=== PATIENT | male | born 1950 | race Caucasian/White ===

== ENCOUNTER → 2017-08-11 | Emergency (ER) | payer BC ==
[~2017-08-11] MED LIST: Triamcinolone Acetonide* 40 MG/ML 1 ML VIAL INTRAARTIC ONE
[2017-08-11 11:20] VITALS: BP 138/89
--- NOTE | 2017-08-11 13:52 | ED ---
Lower Extremity <Shai Adams - Last Filed: 08/11/17 19:58> - HPI Summary HPI Summary: Pt here w/ return of acute Lt lateral foot/arch pain after walking barefoot on hardwood floors past few weeks. H/o "cortisone injection here" a few years ago that really helped. He has an appt w/ podiatry on 09/06 - can't wait until then for pain control - came here as he was hoping for an injection to control pain. 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 Also has DM 2 - well controlled w/ diet. Checks feet daily -no concern for injury/sore/FB/infection/etc. Denies back pain or pain further up in extremity. - History of Current Complaint Hx Obtained From: Patient Pain Intensity: 7 <Brenda Stack - Last Filed: 08/22/17 09:58> - History of Current Complaint Chief Complaint: EDExtremityLower Stated Complaint: FOOT PAIN Time Seen by Provider: 08/11/17 11:38 - Allergies/Home Medications Allergies/Adverse Reactions: Allergies Allergy/AdvReac Type Severity Reaction Status Date / Time No Known Allergies Allergy Verified 08/11/17 11:21 Home Medications: Home Medications Linagliptin (NF) [Tradjenta (NF)] 5 mg PO DAILY 08/11/17 [History Confirmed 07/26] Lisinopril/HCTZ 20/25(NF) [Zestoretic 20/25(NF)] 1 tab PO DAILY 08/11/17 [ History Confirmed 08/11/17] Metoprolol Succinate XL TAB* [Toprol XL TAB*] 150 mg PO DAILY 08/11/17 [History Confirmed 08/11/17] Omeprazole CAP* [Prilosec CAP* 20 MG] 40 mg PO DAILY 08/11/17 [History Confirmed 08/11/17] amLODIPine TAB* [Norvasc 5 mg TAB*] 10 mg PO DAILY 08/11/17 [History Confirmed 08/11/17] PMH/Surg Hx/FS Hx/Imm Hx Previously Healthy: Yes Endocrine/Hematology History: Reports: Hx Diabetes Musculoskeletal History: Reports: Other Musculoskeletal History - foot pain Neurological History: Reports: Hx Peripheral Neuropathy - chemo induced - Cancer History Cancer Type, Location and Year: COLON - Surgical History Surgery Procedure, Year, and Place: RT SHOULDER, KNEE, PORT PLACEMENT, REMOVAL Infectious Disease History: No Infectious Disease History: Denies: Traveled Outside the [place] in Last 30 Days - Social History Alcohol Use: Occasionally Hx Substance Use: No Substance Use Type: Reports: None Hx Tobacco Use: No Smoking Status (MU): Never Smoked Tobacco <Brenda Stack - Last Filed: 08/22/17 09:58> Review of Systems Constitutional: Negative Negative: Fever, Chills, Fatigue Positive: no symptoms reported Musculoskeletal: Other - Lt plantar foot pain Skin: Negative Positive: Paresthesia - baseline Positive: Anxious All Other Systems Reviewed And Are Negative: Yes <Brenda Stack - Last Filed: 08/22/17 09:58> Physical Exam Vital Signs On Initial Exam: Initial Vitals Temp Pulse Resp BP Pulse Ox 97.7 F 71 20 138/89 97 08/11/17 11:15 08/11/17 11:15 08/11/17 11:15 08/11/17 11:15 08/11/17 11:15 <Shai Adams - Last Filed: 08/11/17 19:58> Triage Information Reviewed: Yes Vital Signs On Initial Exam: Initial Vitals Temp Pulse Resp BP Pulse Ox 97.7 F 71 20 138/89 97 08/11/17 11:15 08/11/17 11:15 08/11/17 11:15 08/11/17 11:15 08/11/17 11:15 Vital Signs Reviewed: Yes Appearance: Positive: Well-Appearing, No Pain Distress - at rest - pain is only present when he ambulates, Well-Nourished Skin: Positive: Warm, Skin Color Reflects Adequate Perfusion, Dry - no erythema , no ecchymosis, no vesicles, no signs of trauma Head/Face: Positive: Normal Head/Face Inspection Eyes: Positive: EOMI ENT: Positive: Hearing grossly normal Respiratory/Lung Sounds: Positive: Breath Sounds Present Cardiovascular: Positive: Pulses are Symmetrical in both Upper and Lower Extremities. Negative: Leg Edema Left, Leg Edema Right Musculoskeletal: Positive: Strength/ROM Intact, Pain @ - TTP over Lt midline nad lateral plantar aspect - no knots, laxity or deformity Neurological: Positive: Alert, Oriented to Person Place, Time, CN Intact II-III Psychiatric: Positive: Normal <Sreekanth,Brenda - Last Filed: 08/22/17 09:58> Procedures - Procedure Summary Procedure Summary: Trigger point therapy into Lt plantar surface by Dr. Adams- pt reports immediate relief - see progress note for details <Brenda Stack - Last Filed: 08/22/17 09:58> Diagnostics - Vital Signs Vital Signs Temp Pulse Resp BP Pulse Ox 08/11/17 11:15 97.7 F 71 20 138/89 97 <Shai Adams - Last Filed: 08/11/17 19:58> - Vital Signs Vital Signs Temp Pulse Resp BP Pulse Ox 08/11/17 11:15 97.7 F 71 20 138/89 97 <Brenda Stack - Last Filed: 08/22/17 09:58> Re-Evaluation - Re-Evaluation First Eval Change: Improved <Brenda Stack - Last Filed: 08/22/17 09:58> Lower Extremity Course/Dx <Shai Adams - Last Filed: 08/11/17 19:58> - Course Course Of Treatment: Suspect tendonitis - relief w/ injection. Advised supportive care and to keep f/u w/ podiatry. He agrees with plan. XR: no acute findings <Brenda Stack - Last Filed: 08/22/17 09:58> - Diagnoses Provider Diagnoses: Foot pain, left Discharge - Billing Disposition and Condition Condition: STABLE Disposition: HOME <Shai Adams - Last Filed: 08/11/17 19:58> - Sign-Out/Discharge Documenting (check all that apply): Discharge/Admit/Transfer - Billing Disposition and Condition Condition: STABLE Disposition: HOME <Brenda Stack - Last Filed: 08/22/17 09:58> - Discharge Plan Condition: Stable Disposition: HOME Patient Education Materials: Plantar Fasciitis (ED) Referrals: Darío Felipe DO [Primary Care Provider] - Additional Instructions: Rest, stretch and wear supportive footwear as in education. You may also try placing a water bottle in the freezer, then after water freezes, roll your foot over the bottle to aid in pain. If you are able, you may also take ibuprofen with food for pain. Keep appointment with podiatry for follow-up.
--- NOTE | 2017-08-11 14:33 | RAD ---
Indication: Plantar aspect LEFT foot pain for 2 weeks. Comparison: No relevant prior exams available [place] [facility] [place]. Technique: AP, lateral, and oblique views LEFT foot. REPORT AND IMPRESSION: Negative for fracture or stigmata of stress reaction. Normal variant bipartite medial and lateral sesamoids at the flexor hallucis brevis. Polyarticular mild osteoarthritis. Normal articular alignment. Unremarkable soft tissue contours.
--- NOTE | 2017-08-11 20:09 | UC ---
- Progress Note Progress Note: I supervised the care of the advanced practice provider. I performed a history and physical on the patient. History: Diabetic with history of plantar fasciitis who presents with foot pain related to walking on his hardwood floors. Physical exam: Decreased sensation in the plantar foot. No wounds or evidence for foreign body. Tenderness in the mid plantar area of the right foot. Plan: Patient requested steroid injection in the foot. I provided this. Follow up with his manager [facility]. Injection of the plantar fascia: Patient was verbally consented. The plantar right foot was prepared with ChloraPrep. He was injected in the mid plantar fascia through a 25-gauge needle with a total of 40 mg of Kenalog +0.5 cc of 0.5% bupivacaine. He tolerated this well without complication. There is no bleeding. He is dressed with a Band-Aid. Re-Evaluation - Re-Evaluation First Eval Change: Improved Course/Dx - Diagnoses Provider Diagnoses: Foot pain, left Discharge - Sign-Out/Discharge Documenting (check all that apply): Discharge/Admit/Transfer - Discharge Plan Condition: Stable Disposition: HOME Patient Education Materials: Plantar Fasciitis (ED) Referrals: Darío Felipe DO [Primary Care Provider] - Additional Instructions: Rest, stretch and wear supportive footwear as in education. You may also try placing a water bottle in the freezer, then after water freezes, roll your foot over the bottle to aid in pain. If you are able, you may also take ibuprofen with food for pain. Keep appointment with podiatry for follow-up. - Billing Disposition and Condition Condition: STABLE Disposition: HOME
== END | disposition home or self-care (01) ==
LOC: ED 11:13
DX: M79.672 Pain in left foot (principal); Z85.038 Personal history of other malignant neoplasm of large intestine; E11.9 Type 2 diabetes mellitus without complications
CPT/HCPCS: 96374; 99281; J3301

== ENCOUNTER 2019-09-18 10:27 | Observation (INO) ==
[2019-09-18] MEDS ORDERED: Magnesium Sulfate 2 gm BAG 2 GM/50 ML BAG IVPB ONE ×3 (10:46→18:30)
[2019-09-18 11:17] LABS: ABS Basophils 0.1 10^3/ul (0-0.2); ABS Eosinophils 0.1 10^3/ul (0-0.6); ABS Lymphocytes 2.1 10^3/ul (1.0-4.8); ABS Monocytes 0.6 10^3/ul (0-0.8); Eosinophil % 1.4 %; Hematocrit 39 % (42-52); Hemoglobin 13.4 g/dL (14.0-18.0); Lymphocyte % 24.7 %; Mean Corpuscular HGB Conc 34 g/dL (31-36); Mean Corpuscular Hemoglobin 28 pg (27-31); Mean Corpuscular Volume 83 fL (80-94); Mean Platelet Volume 9.9 fL (7.4-10.4); Nucleated Red Blood Cells % 0.1; Platelet Count 187 10^3/uL (150-450); Red Blood Count 4.74 10^6 /uL (4.18-5.48); Red Cell Distribution Width 15 % (10-15); White Blood Count 8.6 10^3/uL (3.5-10.8)
[2019-09-18 11:39] LABS: ALT 15 U/L (7-52); AST 16 U/L (13-39); Albumin 4.3 g/dL (3.2-5.2); Albumin/Globulin Ratio 1.7 (1-3); Alkaline Phosphatase 61 U/L (34-104); Anion Gap 8 mmol/L (2-11); BUN/Creatinine Ratio 26.3 (8-20); Blood Urea Nitrogen 30 mg/dL (6-24); CO2 Carbon Dioxide 21 mmol/L (22-32); Calcium 9.1 mg/dL (8.6-10.3); Chloride 104 mmol/L (101-111); EGFR African American 76.8 (>60); EGFR Non-African American 63.5 (>60); Globulin 2.6 g/dL (2-4); Glucose 208 mg/dL (70-100); Potassium 4.6 mmol/L (3.5-5.0); Sodium 133 mmol/L (135-145); Total Protein 6.9 g/dL (6.4-8.9)
[2019-09-18 11:45] LABS: Magnesium < 0.5 mg/dL (1.9-2.7)
[2019-09-18] MEDS: Enoxaparin 40 MG/0.4 ML SYR(*) SUBCUT SCH (15:16)
[2019-09-18 17:08] LABS: Urine Appearance Clear; Urine Bilirubin Negative (Negative); Urine Blood Negative (Negative); Urine Color Straw; Urine Glucose Negative (Negative); Urine Ketones Negative (Negative); Urine Nitrite Negative (Negative); Urine Protein Negative (Negative); Urine Specific Gravity 1.008 (1.010-1.030); Urine Urobilinogen Negative (Negative)
[2019-09-19] MEDS ORDERED: Metoprolol Succinate XL 200 mg TAB PO SCH (09:00)
[2019-09-19] MEDS ORDERED: Magnesium Sulfate IV 3 GM in NS 0.9% 100 ml BAG 100 ML IVPB ONE (09:17)
[2019-09-19] MEDS: Enoxaparin 40 MG/0.4 ML SYR(*) SUBCUT SCH (12:23)
[2019-09-19 13:34] VITALS: BP 142/75
[2019-09-20 15:27] LABS: Magnesium/Creatinine Ratio 0.027 mg/mg (>=0.035)
== END 2019-09-19 16:30 | disposition home or self-care (01) ==
LOC: MEDTELE 10:27 → ED 10:27 → MEDTELE 14:33
PROVIDERS: ADMIT Internal Medicine; ATTEND Internal Medicine